=== PATIENT | female | born 2000 | race Caucasian/White ===

== ENCOUNTER 2022-01-22 09:15 | Emergency (ER) | payer OTHER ==
[2022-01-22 09:29] VITALS: BP 120/68; PULSE 113; RESP 18; TEMP 97.4; BMI 25.6
[2022-01-22 12:44] LABS: BASO % 0.8 % (0-2.0); EOS % 4.1 % (0-4.5); HEMATOCRIT 41.9 % (32.4-45.2); HEMOGLOBIN 13.9 GM/dL (10.7-15.3); MCH 29.7 pg (25.7-33.7); MCHC 33.3 g/dl (32.0-36.0); MEAN CELL VOLUME 89.3 fl (80-96); MEAN PLT VOLUME 8.5 fl (7.5-11.1); MONO % 8.9 % (3.8-10.2); NEUT % 60.2 % (42.8-82.8); PLATELET COUNT 298 10^3/uL (134-434); RBC 4.69 M/mm3 (3.60-5.2); RDW 13.1 % (11.6-15.6); WHITE BLOOD COUNT 7.3 K/mm3 (4.0-10.0)
[2022-01-22 13:03] LABS: CALCIUM 9.5 mg/dL (8.5-10.1); URINE APPEARANCE CLOUDY; URINE BILIRUBIN NEGATIVE (NEGATIVE); URINE COLOR YELLOW; URINE GLUCOSE (UA) NEGATIVE (NEGATIVE); URINE KETONE NEGATIVE (NEGATIVE); URINE LEUK ESTERASE NEGATIVE (NEGATIVE); URINE NITRITE NEGATIVE (NEGATIVE); URINE PROTEIN NEGATIVE (NEGATIVE); URINE UROBILINOGEN 0.2 mg/dL (0.2-1.0)
[2022-01-22 13:04] LABS: ALBUMIN 3.8 g/dl (3.4-5.0); BLOOD UREA NITROGEN 9.9 mg/dL (7-18)
[2022-01-22 13:07] LABS: CREATININE 0.5 mg/dL (0.55-1.3)
[2022-01-22 13:09] LABS: BILIRUBIN,TOTAL 0.2 mg/dL (0.2-1); TOT PROT 7.8 g/dl (6.4-8.2)
== END 2022-01-22 14:57 | disposition home or self-care (01) ==
LOC: JERFT 09:15
DX: O26.851 Spotting complicating pregnancy, first trimester (principal); Z3A.01 Less than 8 weeks gestation of pregnancy
CPT/HCPCS: 36415; 76817-TC; 80053; 81003; 84702; 84703; 85025; 86850; 86900; 86901; 87077; 87086; 99284-25